=== PATIENT | male | born 1955 | race Caucasian/White ===

== ENCOUNTER 2016-06-04 15:53 | Observation (INO) ==
--- NOTE | 2016-06-04 16:37 | Emergency Department Note ---
Disposition Clinical Impression: Hyperglycemia, Dehydration, Atrial fibrillation, controlled Syncope Qualifiers: Syncope type: unspecified Qualified Code(s): R55 - Syncope and collapse Disposition: Admitted As Inpatient Condition: Good Referrals: Brenda Harry MD [Primary Care Provider] - Forms: ED Satisfaction Letter Time of Disposition: 19:07 Fall HPI - General Chief Complaint: ED Fall Stated Complaint: fall, hit tail bone on gravel Time Seen by Provider: 06/04/16 16:30 Source: patient Mode of arrival: EMS Limitations: no limitations Nursing Notes Reviewed: Yes Vital Signs Reviewed: Yes - History of Present Illness HPI Narrative: 61-year-old white male who presents via EMS after a fall injuring his tailbone. States she was actually walking out to his mailbox he felt dizzy and passed out and landed on his bottom. States she was only out for a few seconds. He says he passes out frequently, probably once every couple weeks. He states he has been tested in the past and he states they could not find a reason for him passing out. No chest pain. No shortness of breath. He does admit that he has been off all of his medications for about a month, he states he ran out. He is obviously unkempt and dirty. He states he has had no hot water and has not been bathing. 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 Fall From: standing Fall Witnessed: no Place Fall Occurred: home Loss of Consciousness: yes Prolonged Down Time?: no Symptoms Prior to Fall: lightheadedness Context: history of frequent falls, other (Past out) Location of injury: other ([place]) Severity: moderate Quality: sharp Associated symptoms (after fall): Reports: denies - Related Data Home Medications Medication Instructions Recorded Confirmed Aspirin [Lo-Dose Aspirin EC] 1 tab PO DAILY 11/09/15 06/04/16 Metformin [Glucophage] 500 mg PO BID 11/09/15 06/04/16 Morphine Sulfate [Morphine Sulfate] 15 mg PO DAILY 11/09/15 06/04/16 Multivitamin [Multivitamins] 1 cap PO DAILY 11/09/15 06/04/16 Ranitidine HCl [Zantac 75] 1 tab PO DAILY 11/09/15 06/04/16 Tranylcypromine Sulfate [Parnate] 10 mg PO BID 06/04/16 06/04/16 Allergies Allergy/AdvReac Type Severity Reaction Status Date / Time simginaicone Allergy Rash Verified 06/04/16 15:56 All systems ED: reviewed and negative except as stated. Constitutional: Denies: fever, chills Eyes: Denies: vision change ENT ED: Denies: ear pain, throat pain Cardiovascular: Denies: chest pain, palpitations Respiratory: Denies: cough, dyspnea Gastrointestinal: Denies: abdominal pain, nausea, vomiting Genitourinary: Denies: urgency, dysuria, frequency Musculoskeletal: Reports: back pain. Denies: neck pain Integumentary: Denies: rash, abrasion Neurological: Denies: headache, weakness, numbness, paresthesias Fall PMH - Past Medical History Medical history: Reports: diabetes, GERD, myocardial infarction Psychiatric history: Reports: no psych history - Social History Smoking Status: Former smoker Alcohol use: Reports: none Drug use: Reports: none Physical Exam - General Limitations: no limitations General appearance: alert, in no apparent distress - Head Head exam: atraumatic, normocephalic - Eye Eye exam: Present: PERRL, EOMI. Absent: scleral icterus, conjunctival injection - ENT ENT exam: normal oropharynx, mucous membranes moist - Neck Neck exam: Present: normal inspection, full ROM, trachea midline. Absent: lymphadenopathy - Respiratory Respiratory exam: Present: normal lung sounds bilaterally. Absent: respiratory distress, wheezes - Cardiovascular Cardiovascular exam: Present: regular rate, normal rhythm, normal heart sounds - Abdominal Exam Abdominal exam: Present: soft, Non-Tender, normal bowel sounds. Absent: organomegaly, mass - Extremities Exam Extremities exam: Present: normal inspection, full ROM, normal capillary refill - Neurological Exam Neurological exam: Present: alert, oriented X3, CN II-XII intact, reflexes normal. Absent: motor sensory deficit - Psychiatric Psychiatric exam: Present: normal affect, normal mood - Skin Skin exam: Present: warm, dry, intact, other (30) Course Vital Signs Temperature 100.2 F H 06/04/16 15:58 Pulse Rate 70 06/04/16 15:58 Respiratory Rate 18 06/04/16 15:58 Blood Pressure 119/81 06/04/16 15:58 O2 Sat by Pulse Oximetry 96 06/04/16 15:58 Temperature 100.2 F H 06/04/16 16:02 Pulse Rate 93 06/04/16 18:00 Respiratory Rate 18 06/04/16 18:00 Blood Pressure 122/68 06/04/16 18:00 O2 Sat by Pulse Oximetry 96 06/04/16 18:00 Oxygen Delivery Oxygen Delivery Room Air Fall - MDM Narrative Medical decision making narrative: Differential includes but is not limited to arrhythmia, dehydration, anemia, electrolyte abnormality, sacral contusion, sacral fracture. The Patient is in atrial fibrillation with a controlled rate, it is possibly new. I do not have any old recent tracing for comparison, the most recent one is from approximately 7 or 8 months ago. He has a sacral contusion. He is dehydrated and hyperglycemic. He will need hydration and control of his blood sugar. I will put him on some Lovenox. He was given IV insulin here and will be put on a sliding scale. - Lab Data Lab results reviewed: Yes I reviewed the patient's lab results. Result diagrams: 06/04/16 16:56 06/04/16 16:56 Lab Results 06/04/16 06/04/16 06/04/16 Range/Units 16:56 16:56 16:56 WBC 8.4 (4.3-11.1) K/mcL RBC 4.32 (4.19-5.50) M/mcL Hgb 13.0 (12.9-16.9) g/dL Hct 36.6 L (37.5-50.1) % MCV 84.7 (83.0-100.0) fL MCH 30.1 (28.0-33.3) pg MCHC 35.5 (31.6-35.5) g/dL RDW 13.7 (11.5-14.5) % Plt Count 282 (140-400) K/mcL MPV 10.3 (9.4-12.4) fL Immature Gran % 2.8 (0-4) % Seg Neutrophils % 66.6 % Lymphocytes % 20.6 % Monocytes % 8.5 % Eosinophils % 0.8 % Basophils % 0.7 % Neutrophils # 5.6 (1.6-8.9) K/mcL Lymphocytes # 1.7 (0.6-4.6) K/mcL Monocytes # 0.7 (0.0-1.3) K/mcL Eosinophils # 0.1 (0.0-0.6) K/mcL Basophils # 0.1 (0.0-0.2) K/mcL VBG pH (7.32-7.42) pH Units VBG pCO2 (41-51) mmHg VBG pO2 (25-40) mmHg VBG HCO3 (21-27) mEq/L Sodium 122 L (136-145) mEq/L Potassium 5.5 H (3.5-4.5) mEq/L Chloride 81 L (98-109) mEq/L Carbon Dioxide 26 (19-29) mEq/L BUN 44 H (8-26) mg/dL Creatinine 1.21 (0.72-1.25) mg/dL Est GFR ( Amer) > 60 (> 60) Est GFR (Non-Af Amer) > 60 (> 60) BUN/Creatinine Ratio 36 H (6-26) Glucose 752 H* (70-99) mg/dL Calculated Osmolality 301 H (280-300) Calcium 9.3 (8.6-10.8) mg/dL Total Bilirubin 0.4 (0.2-1.2) mg/dL AST 24 (5-34) Units/L ALT 19 (0-55) Units/L Alkaline Phosphatase 119 (38-126) Units/L Troponin I 0.03 (0-0.03) ng/mL Serum Total Protein 6.5 (6.0-8.3) g/dL Albumin 2.9 L (3.5-5.0) g/dL Globulin 3.6 H (2.4-3.5) g/dL Albumin/Globulin Ratio 0.8 L (1.1-2.2) Beta-Hydroxybutyric Acd (0.02-0.27) mmol/L Urine Color (Yellow) Urine Clarity (Clear) Urine pH (5.0-8.0) pH Units Ur Specific [place] (1.010-1.025) Urine Protein (Neg-Trace) mg/dL Urine Glucose (UA) (Normal) mg/dL Urine Ketones (Negative) mg/dL Urine Blood (Negative) Urine Nitrite (Negative) Urine Bilirubin (Negative) Urine Urobilinogen (Normal) mg/dL Ur Leukocyte Esterase (Negative) Ur Culture Indicated? (NO) 06/04/16 06/04/16 06/04/16 Range/Units 16:56 17:10 17:55 WBC (4.3-11.1) K/mcL RBC (4.19-5.50) M/mcL Hgb (12.9-16.9) g/dL Hct (37.5-50.1) % MCV (83.0-100.0) fL MCH (28.0-33.3) pg MCHC (31.6-35.5) g/dL RDW (11.5-14.5) % Plt Count (140-400) K/mcL MPV (9.4-12.4) fL Immature Gran % (0-4) % Seg Neutrophils % % Lymphocytes % % Monocytes % % Eosinophils % % Basophils % % Neutrophils # (1.6-8.9) K/mcL Lymphocytes # (0.6-4.6) K/mcL Monocytes # (0.0-1.3) K/mcL Eosinophils # (0.0-0.6) K/mcL Basophils # (0.0-0.2) K/mcL VBG pH 7.40 (7.32-7.42) pH Units VBG pCO2 49 (41-51) mmHg VBG pO2 33.5 (25-40) mmHg VBG HCO3 30.4 H (21-27) mEq/L Sodium (136-145) mEq/L Potassium (3.5-4.5) mEq/L Chloride (98-109) mEq/L Carbon Dioxide (19-29) mEq/L BUN (8-26) mg/dL Creatinine (0.72-1.25) mg/dL Est GFR ( Amer) (> 60) Est GFR (Non-Af Amer) (> 60) BUN/Creatinine Ratio (6-26) Glucose (70-99) mg/dL Calculated Osmolality (280-300) Calcium (8.6-10.8) mg/dL Total Bilirubin (0.2-1.2) mg/dL AST (5-34) Units/L ALT (0-55) Units/L Alkaline Phosphatase (38-126) Units/L Troponin I (0-0.03) ng/mL Serum Total Protein (6.0-8.3) g/dL Albumin (3.5-5.0) g/dL Globulin (2.4-3.5) g/dL Albumin/Globulin Ratio (1.1-2.2) Beta-Hydroxybutyric Acd 1.76 H (0.02-0.27) mmol/L Urine Color Light Yellow (Yellow) Urine Clarity Clear (Clear) Urine pH 6.0 (5.0-8.0) pH Units Ur Specific [place] 1.010 (1.010-1.025) Urine Protein Negative (Neg-Trace) mg/dL Urine Glucose (UA) >=1000 H (Normal) mg/dL Urine Ketones 15 H (Negative) mg/dL Urine Blood Negative (Negative) Urine Nitrite Negative (Negative) Urine Bilirubin Negative (Negative) Urine Urobilinogen Normal (Normal) mg/dL Ur Leukocyte Esterase Negative (Negative) Ur Culture Indicated? NO (NO) - Radiology Data Radiology results reviewed: Yes I reviewed the patient's radiology results. ITS Impressions Chest X-Ray 06/04/16 16:33 IMPRESSION: No acute process. D/ / Zeb Dimas MD / Zeb Dimas MD Interpreting Provider: Zeb Dimas MD Sacrum and Coccyx X-Ray 06/04/16 16:33 IMPRESSION: 1. The distal aspect of the coccyx is not visualized. If there is pain in this region repeat lateral views are suggested 2. Otherwise, unremarkable appearing sacrum and coccyx D/ / Zeb Dimas MD / Zeb Dimas MD Interpreting Provider: Zeb Dimas MD - EKG Data EKG attestation: Yes I reviewed and interpreted this EKG. EKG results narrative: Atrial fibrillation, rate of 92, nonspecific ST-T changes. Rhythm strip shows atrial fibrillation with rate of 92, QRS 88 ms with no other ectopy as interpreted by me. The only old tracing available for comparison is from , he is in a sinus rhythm at that time with a rate of 74.
[2016-06-04 17:02] LABS: Basophils # 0.1 K/mcL (0.0-0.2); Basophils % 0.7 %; Eosinophils # 0.1 K/mcL (0.0-0.6); Eosinophils % 0.8 %; Hematocrit 36.6 % (37.5-50.1); Immature Granulocytes % 2.8 % (0-4); Lymphocytes # 1.7 K/mcL (0.6-4.6); Lymphocytes % 20.6 %; Mean Corpuscular HGB Conc 35.5 g/dL (31.6-35.5); Mean Corpuscular Hemoglobin 30.1 pg (28.0-33.3); Mean Corpuscular Volume 84.7 fL (83.0-100.0); Mean Platelet Volume 10.3 fL (9.4-12.4); Monocytes # 0.7 K/mcL (0.0-1.3); Monocytes % 8.5 %; Neutrophils # 5.6 K/mcL (1.6-8.9); Platelet Count 282 K/mcL (140-400); Red Blood Count 4.32 M/mcL (4.19-5.50); Red Cell Distribution Width 13.7 % (11.5-14.5); Segmented Neutrophils % 66.6 %
[2016-06-04 17:17] LABS: Alanine Aminotransferase 19 Units/L (0-55); Albumin 2.9 g/dL (3.5-5.0); Albumin/Globulin Ratio 0.8 (1.1-2.2); Alkaline Phosphatase 119 Units/L (38-126); Aspartate Amino Transferase 24 Units/L (5-34); BUN/Creatinine Ratio 36 (6-26); Bilirubin,Total 0.4 mg/dL (0.2-1.2); Blood Urea Nitrogen 44 mg/dL (8-26); Calcium 9.3 mg/dL (8.6-10.8); Carbon Dioxide 26 mEq/L (19-29); Chloride 81 mEq/L (98-109); Globulin 3.6 g/dL (2.4-3.5); Osmolality,Calculated 301 (280-300); Potassium 5.5 mEq/L (3.5-4.5); Sodium 122 mEq/L (136-145); Total Protein 6.5 g/dL (6.0-8.3); eGFR For African Americans > 60 (> 60); eGFR For Non-African Americans > 60 (> 60)
[2016-06-04 17:18] LABS: Bilirubin,Urine Negative (Negative); Blood,Urine Negative (Negative); Clarity,Urine Clear (Clear); Glucose,Urine (UA) >=1000 mg/dL (Normal); Ketones,Urine 15 mg/dL (Negative); Leukocyte Esterase,Urine Negative (Negative); Nitrite,Urine Negative (Negative); Protein,Urine Negative (Neg-Trace); Urobilinogen,Urine Normal (Normal)
[2016-06-04 17:21] LABS: Glucose 752 mg/dL (70-99)
[2016-06-04 17:24] LABS: Color,Urine Light Yellow (Yellow)
[2016-06-04] MEDS ORDERED: 0.9 % Sodium Chloride 1,000 ML IVC ONE (17:29)
[2016-06-04] MEDS ORDERED: Insulin Human Regular 6 UNIT in 0.9 % Sodium Chloride 10 ML IV ONE (17:29)
[2016-06-04] MEDS ORDERED: 0.9 % Sodium Chloride 1,000 ML IVC SCH ×2 (17:30→19:19)
[2016-06-04 18:06] LABS: VBG HCO3 30.4 mEq/L (21-27); VBG PH 7.4 pH Units (7.32-7.42); VBG PO2 33.5 mmHg (25-40)
[2016-06-04] MEDS ORDERED: Dextrose Gel 15 GM PO PRN ×2 (19:19)
[2016-06-04] MEDS ORDERED: *HR* Dextrose 50 % in Water (Syg) 50 ML SYRINGE IVP PRN (19:19)
[2016-06-04] MEDS ORDERED: Naloxone 0.4 MG/ML INJ IVP PRN (19:19)
[2016-06-04] MEDS: 0.9 % Sodium Chloride 1,000 ML IVC SCH (22:00)
[2016-06-04] MEDS: *HR* Metformin 500 MG TABLET PO SCH (22:04)
[2016-06-04 22:21] LABS: Estimated Average Glucose > 355 mg/dl; Hemoglobin A1C >= 14.1 %
[2016-06-05] MEDS: Insulin LISPRO 300 UNITS/3 ML VIAL SQ SCH ×3 (01:02→12:49)
[2016-06-05] MEDS: *HR* Metformin 500 MG TABLET PO SCH (08:24)
[2016-06-05] MEDS: 0.9 % Sodium Chloride 1,000 ML IVC SCH ×2 (08:24→15:20)
[2016-06-05] MEDS ORDERED: Famotidine 20 MG TABLET PO SCH (09:00)
[2016-06-05] MEDS ORDERED: Multivit/Ca/Min/Fe/FA 1 TAB TABLET PO SCH (09:00)
[2016-06-05] MEDS ORDERED: Aspirin Enteric Coated 81 MG Tablet PO SCH (09:00)
--- NOTE | 2016-06-05 11:38 | Internal Med History&Physical ---
Date of Encounter: 06/05/16 Time of Encounter: 11:00 Assessment and Plan (1) Azotemia Current visit: Yes Status: Acute Suspect acute on chronic renal failure. Creatinine has steadily risen over the last 2 years. He likely has dehydration from glycosuria. (2) DM type 2 (diabetes mellitus, type 2) Current visit: Yes Status: Chronic Poorly controlled. Hemoglobin A1c in emergency room was greater than 14.1%. He does not follow a diabetic diet and has been out of metformin for at least a month. Has significant glycosuria and hyperglycemia. Qualifiers: Diabetes mellitus complication status: with unspecified complications Diabetes mellitus intermediate insulin use: without printing engineer use Qualified Code( s): E11.8 - Type 2 diabetes mellitus with unspecified complications (3) Electrolyte imbalance Current visit: Yes Status: Acute He has hyponatremia and hyperkalemia. Evaluation for hyporeninemic hypoaldosteronism should be done. (4) Chronic ulcer of right great toe Current visit: Yes Status: Acute Suspect osteomyelitis of the toe. Qualifiers: Non-pressure ulcer stage: with fat layer exposed Qualified Code(s): L97.512 - Non-pressure chronic ulcer of other part of right foot with fat layer exposed (5) Syncope Current visit: Yes Status: Acute Etiology is not obvious. No workup has been done per his report. Qualifiers: Syncope type: unspecified Qualified Code(s): R55 - Syncope and collapse (6) Atrial fibrillation, controlled Current visit: Yes Status: Acute He reports duration of 10 years. He is not on anticoagulation. (7) Cellulitis and abscess of foot Current visit: Yes Status: Acute His right great toe appears to have cellulitis with possible osteomyelitis as mentioned above. He will need IV antibiotics Internal Medicine - H&P: HPI Chief complaint: Syncope with fall, leg weakness Admitted From: Home Plans for Post Hospital Care: Home History of present illness: Mr. Izaguirre is a 61 year old male who came to the emergency room stating he had a syncopal episode with fall while walking to his mailbox. He states he was unconscious for only a few seconds but when he awakened his feet and legs felt very numb and he was too weak to stand up despite having his walker. He crawled to his truck and call the squad. He was brought to emergency room for evaluation and was admitted to [facility] for ongoing care needs. He reports he has had many previous similar episodes of syncope with fall occurring every few weeks for the last 10 years. He has not told his physicians at the [facility] about the syncopal episodes with falling because he thought they were due to his diabetes or other medical problems and nothing could be done. His cardiovascular history is significant for hypertension. He has ASHD status post SC approximately 2006 followed by heart catheterization which he reports required no further intervention. He states he has had atrial fibrillation for approximately 10 years. He denies known heart failure DVT or pulmonary embolus. 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 He states he has run out of medication for approximately 1 month as he has not been able to return to the [facility] for refills. Past Med Surg Social Fam HX - Past Medical History Medical history: diabetes, GERD, myocardial infarction Psychiatric history: no psych history - Social History Smoking Status: Former smoker Smokeless Tobacco Status: No Alcohol use: none Drug use: none Internal Medicine - H&P: Meds Aspirin [Lo-Dose Aspirin EC] 1 tab PO DAILY 11/09/15 [History] Metformin [Glucophage] 500 mg PO BID 11/09/15 [History] Morphine Sulfate [Morphine Sulfate] 15 mg PO DAILY 11/09/15 [History] Multivitamin [Multivitamins] 1 cap PO DAILY 11/09/15 [History] Ranitidine HCl [Zantac 75] 1 tab PO DAILY 11/09/15 [History] Tranylcypromine Sulfate [Parnate] 10 mg PO BID 06/04/16 [History] Allergies simethicone Allergy (Verified 06/04/16 15:56) Rash All Systems PM: A 10-system review of systems was performed and is negative for pertinent findings except as documented above in the HPI. Review of systems: Gen.: He states his weight has decreased approximately 25 pounds in the past year, unintentionally Cardiovascular: As per history of present illness Respiratory: He smoked from age 15 until 3 months ago up to 2 packs per day. He claims he had PFTs approximately 2011 and was told he had emphysema. He does not use home oxygen. GI: He denies disorders of his liver gallbladder or exocrine pancreas : He has had progressive azotemia noted on labs spanning 2 years. He denied known chronic kidney disease however. He denies other kidney bladder or prostate disorders Neurologic: He has diabetic peripheral neuropathy but denies large distribution strokes or seizures Endocrine: He was diagnosed with DM 2 approximately 2008. He has DPN as per above. He has hyperlipidemia but denies thyroid disease Hematology/oncology: He denies blood disorders cancers or anemia Psychiatric: He has anxiety depression but denies other mental health diagnoses [place] skeletal: He had amputation of the right second toe. He had traumatic amputation of the left fourth and fifth fingers from a saw mill accident remotely. He has had pelvic knee and rib fractures from an accident. He has DJD but denies gout. He has had an ulcer on his right great toe for several weeks to months. - Constitutional Vitals: Temp Pulse Resp BP Pulse Ox 98.2 F 62 16 108/61 96 06/05/16 11:05 06/05/16 11:05 06/05/16 11:05 06/05/16 11:05 06/05/16 11:05 Exam: Gen.: He is a well-developed lean male lying in bed who appears in no severe distress HEENT: Head is atraumatic and normocephalic. Eyes: EOMI. There is no scleral icterus. Mouth: Mucosa is moist Neck: Supple and nontender. No thyromegaly or adenopathy is noted Heart: Regular without murmurs gallops or ectopics Lungs: No wheezes or crackles are heard. Abdomen: There is mild tenderness in lower abdominal area bilaterally. No masses or guarding are noted. Extremities: Dorsalis pedis and posterior tibial pulses are trace to 1+ palpable bilaterally. His feet are warm to touch. Right great toe shows significant disfigurement with open ulcer distal tip of the distal phalanx. There is diffuse erythema of the entire toe. The second toe on the right foot is surgically missing. He has pustules on his right third finger proximal phalanx dorsal surface. He has traumatic amputation of his left fourth and fifth fingers. Neurologic: Mental status: He is talkative and seems to be a reliable historian. Cranial nerves: Smile is symmetric. Forehead wrinkles bilaterally. Tongue protrudes midline. EOMI. Motor: There is no pronator drift. Cerebellar: Finger to nose is intact bilaterally. Skin: Warm and dry. He had right great toe ulcer as described above. Internal Med - H&P Results - Labs CBC & Chem 7: 06/04/16 16:56 06/04/16 16:56 Labs: Cardiac Enzymes 06/04/16 06/05/16 06/05/16 Range/Units 20:05 01:20 07:25 Troponin I 0.04 H* 0.04 H* 0.04 H* (0-0.03) ng/mL
[2016-06-05 15:30] VITALS: BP 110/64
--- NOTE | 2016-06-05 16:25 | Discharge Summary ---
Date of Encounter: 06/05/16 Time of Encounter: 11:00 - Discharge Diagnosis (1) Syncope Priority: Primary Status: Acute Qualifiers: Syncope type: unspecified Qualified Code(s): R55 - Syncope and collapse (2) Azotemia Priority: Secondary Status: Acute (3) DM type 2 (diabetes mellitus, type 2) Priority: Secondary Status: Chronic Qualifiers: Diabetes mellitus complication status: with unspecified complications Diabetes mellitus residential insulin use: without residential use Qualified Code( s): E11.8 - Type 2 diabetes mellitus with unspecified complications (4) Electrolyte imbalance Priority: Secondary Status: Acute (5) Chronic ulcer of right great toe Priority: Secondary Status: Chronic Qualifiers: Non-pressure ulcer stage: with fat layer exposed Qualified Code(s): L97.512 - Non-pressure chronic ulcer of other part of right foot with fat layer exposed (6) Atrial fibrillation, controlled Priority: Secondary Status: Acute (7) Cellulitis and abscess of foot Priority: Secondary Status: Acute - Discharge Medications Home Medications: Aspirin [Lo-Dose Aspirin EC] 1 tab PO DAILY 11/09/15 [History] Metformin [Glucophage] 500 mg PO BID 11/09/15 [History] Morphine Sulfate [Morphine Sulfate] 15 mg PO DAILY 11/09/15 [History] Multivitamin [Multivitamins] 1 cap PO DAILY 11/09/15 [History] Ranitidine HCl [Zantac 75] 1 tab PO DAILY 11/09/15 [History] Tranylcypromine Sulfate [Parnate] 10 mg PO BID 06/04/16 [History] Allergies/Adverse Reactions: Allergies simethicone Allergy (Verified 06/04/16 15:56) Rash Date of admission: 06/04/16 19:17 Primary care physician: Brenda Harry MD Consults: 06/05/16 06:39 Consult to Nutrition [CONS] Routine Comment: Consulting Provider: NUTRITION Reason for Dietary Consult: Diet Education 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 Izaguirre is a 61 year old male who came to the emergency room stating he had a syncopal episode with fall while walking to his mailbox. He states he was unconscious for only a few seconds but when he awakened his feet and legs felt very numb and he was too weak to stand up despite having his walker. He crawled to his truck and call the squad. He was brought to emergency room for evaluation and was admitted to [facility] for ongoing care needs. Initial orders were written by the emergency room physician. I saw him on June 05 and performed the history and physical. I felt he needed additional workup to address his multiple medical problems. Contact was made with the [facility] and he was accepted in transfer the afternoon of June 05 for ongoing care needs. - Time Spent with Patient Total time spent providing and/or coordinating discharge services: - Constitutional Vitals: Temp Pulse Resp BP Pulse Ox 98.0 F 58 16 110/64 98 06/05/16 15:28 06/05/16 15:28 06/05/16 15:28 06/05/16 15:28 06/05/16 15:28
--- NOTE | 2016-06-05 17:23 | Electrocardiograph Report ---
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
== END 2016-06-05 17:40 | disposition short-term general hospital (02) ==
LOC: INPPIK 15:53 → EMEROOPIK 15:53 → INPPIK 19:47
PROVIDERS: ADMIT Internal Medicine; ATTEND Internal Medicine